=== PATIENT | male | born 1960 | race Caucasian/White ===

== ENCOUNTER 2020-05-02 13:20 | Emergency (ER) | payer OTHER ==
--- NOTE | 2020-05-02 16:44 | ER ---
Nurse's Notes [facility] Name: Marcelo Richards Age: 59 yrs Sex: Male : 1960 Arrival Date: 05/02/2020 Time: 13:23 Bed 25 Private MD: Diagnosis: Hematuria, unspecified Presentation: 05/02 13:31 Chief complaint: Patient states: Blood in urine with clots for 2 days. No fever. Had ll1 same problem in March that resolved on its own. No fever or pain. Coronavirus screen: Client denies travel out of the [place] in the last 14 days. At this time, the client does not indicate any symptoms associated with coronavirus-19. Ebola Screen: Patient denies travel to an Ebola-affected area in the 21 days before illness onset. Initial Sepsis Screen: Does the patient meet any 2 criteria? No. Patient's initial sepsis screen is negative. Does the patient have a suspected source of infection? Yes: Dysuria/Frequency/Urgency/UTI Other: bloody urine. Risk Assessment: Do you want to hurt yourself or someone else? Patient reports no desire to harm self or others. 13:31 Method Of Arrival: Ambulatory 1 13:31 Acuity: PATRIZIA 3 ll1 13:36 Chief complaint:. Onset of symptoms was May 01, 2020. ll1 Historical: - Allergies: 13:38 No Known Allergies; ll1 - PMHx: 13:38 None; ll1 - PSHx: 13:38 None; ll1 - Immunization history:: Flu vaccine is not up to date. - Social history:: Smoking status: Patient denies any tobacco usage or history of. Vital Signs: 13:36 BP 177 / 91; Pulse 98; Resp 17; Temp 98.0; Pulse Ox 100% ; Weight 90.72 kg; Height 5 ll1 ft. 11 in. (180.34 cm); Pain 0/10; 13:36 Body Mass Index 27.89 (90.72 kg, 180.34 cm) ll1 ED Course: 13:23 Patient arrived in ED. mr 13:31 Arm band placed on. ll1 13:32 Triage completed. ll1 15:30 Urine collected: clean catch specimen, clear, debi blood. jp3 15:30 Patient maintains SpO2 saturation greater than 95% on room air. jp3 16:25 Amanda Warner, RN is Primary Nurse. ec1 16:25 Telly Gonsales PA is PHCP. joe 16:25 Ryan Noel MD is Attending Physician. [facility] 16:26 Bed in low position. Call light in reach. Side rails up X 1. Warm blanket given. Verbal jp3 reassurance given. Pulse ox on. NIBP on. 16:43 Cory Mcgregor MD is Referral Physician. [facility] Administered Medications: No medications were administered Outcome: 16:43 [address]charge ordered by . [facility] 16:46 Patient left the ED. ll1 Signatures: Telly Gonsales PA PA [facility] Sabi Pulliam Jacob jp3 Mynor Borrego RN RN ll1 Amanda Warner, TONIE RN ec1 Corrections: (The following items were deleted from the chart) 13:38 13:31 Chief complaint: Patient states: Blood in urine with clots for days. No fever. ll1ll1
--- NOTE | 2020-05-02 16:44 | EDPHYS ---
Physician Documentation [facility] Name: Marcelo Richards Age: 59 yrs Sex: Male : 1960 Arrival Date: 05/02/2020 Time: 13:23 Bed 25 Private MD: ED Physician Ryan Noel HPI: 05/02 14:49 This 59 yrs old Male presents to ER via Ambulatory with complaints of Blood jmm in urine,Blood clot. 14:49 The patient presents with hematuria. Onset: The symptoms/episode began/occurred jmm gradually, 2 day(s) ago. Modifying factors: The symptoms are alleviated by nothing, the symptoms are aggravated by nothing. Associated signs and symptoms: Pertinent negatives: abdominal pain, fever. This is a 59 year old male that presents to the ED with complaints of blood clots in his urine. Patient denies pain, fever. Similar episode 1 month ago. Patient unable to see a urologist until Thursday. . Historical: - Allergies: 13:38 No Known Allergies; ll1 - PMHx: 13:38 None; ll1 - PSHx: 13:38 None; ll1 - Immunization history:: Flu vaccine is not up to date. - Social history:: Smoking status: Patient denies any tobacco usage or history of. ROS: 14:49 Constitutional: Negative for fever, chills, and weight loss, Cardiovascular: Negative jmm for chest pain, palpitations, and edema, Respiratory: Negative for shortness of breath, cough, wheezing, and pleuritic chest pain, Abdomen/GI: Negative for abdominal pain, nausea, vomiting, diarrhea, and constipation. 14:49 : Positive for hematuria. 14:49 All other systems are negative. Exam: 14:49 Constitutional: This is a well developed, well nourished patient who is awake, alert, jmm and in no acute distress. Head/Face: atraumatic. Eyes: EOMI, no conjunctival erythema appreciated ENT: Moist Mucus Membranes Neck: Trachea midline, Supple Chest/axilla: Normal chest wall appearance and motion. Cardiovascular: Regular rate and rhythm. No edema appreciated Respiratory: Normal respirations, no respiratory distress appreciated Abdomen/GI: Non distended, soft Back: Normal ROM Skin: General appearance color normal MS/ Extremity: Moves all extremities, no obvious deformities appreciated, no edema noted to the lower extremities Neuro: Awake and alert, normal gait Psych: Behavior is normal, Mood is normal, Patient is cooperative and pleasant Vital Signs: 13:36 BP 177 / 91; Pulse 98; Resp 17; Temp 98.0; Pulse Ox 100% ; Weight 90.72 kg; Height 5 ll1 ft. 11 in. (180.34 cm); Pain 0/10; 13:36 Body Mass Index 27.89 (90.72 kg, 180.34 cm) ll1 MDM: 16:25 Patient medically screened. [facility] 16:41 Data reviewed: vital signs, nurses notes. Counseling: I had a detailed discussion with ashlee the patient and/or guardian regarding: the historical points, exam findings, and any diagnostic results supporting the discharge/admit diagnosis, the need for outpatient follow up, to return to the emergency department if symptoms worsen or persist or if there are any questions or concerns that arise at home. Medical screen evaluation completed. [facility]. ED course: I discussed options with the patient. UA does not appear to show signs of infection. I advised the patient to drink plenty of fluids and follow up with urology for cystoscopy. Patient advised to return to the ED if he develops weakness, fever, pain, inability to urinate. . 05/02 14:48 Order name: Urine --Ancillary (enter results); Complete Time: 16:26 bd 05/02 16:27 Order name: Urine Dipstick-Ancillary (obtain specimen); Complete Time: 16:27 [facility] Administered Medications: No medications were administered Disposition: 17:35 Co-signature as Attending Physician, Ryan Noel MD. ma2 Disposition: 05/02/20 16:43 Discharged to Home as Medical Screen. Impression: Hematuria, unspecified. - Condition is Stable. - Discharge Instructions: Hematuria, Adult. - Medication Reconciliation Form, Thank You Letter, Antibiotic Education, Prescription Opioid Use form. - Follow up: Cory Mcgregor MD; When: As needed; Reason: Recheck today's complaints, Continuance of care, Re-evaluation by your physician. Signatures: Dispatcher [employer] EDMS Telly Gonsales PA PA jmm Alzahri, Mohammad, MD MD ma2 Mynor Borrego RN RN ll1 Corrections: (The following items were deleted from the chart) 16:46 16:43 05/02/2020 16:43 Discharged to Home as Medical Screen. Impression: Hematuria, ll1 unspecified. Condition is Stable. Forms are Medication Reconciliation Form, Thank You Letter, Antibiotic Education, Prescription Opioid Use. Follow up: Cory Mcgregor; When: As needed; Reason: Recheck today's complaints, Continuance of care, Re-evaluation by your physician. ashlee
[2020-05-02 16:50] VITALS: BP 177/91; TEMP 98; O2SAT 100
== END 2020-05-02 16:46 | disposition home or self-care (01) ==
LOC: ER 13:20
DX: R31.9 Hematuria, unspecified (principal)
CPT/HCPCS: 81025; 99284

== ENCOUNTER 2023-09-20 10:42 | Emergency (ER) | payer OTHER ==
--- NOTE | 2023-09-20 11:41 | RAD REPORT ---
EXAM DESCRIPTION: CT - Abdomen Pelvis Wo Contrast - 09/20/2023 11:14 am CLINICAL HISTORY: Abdominal pain /flank pain COMPARISON: None TECHNIQUE: Computed axial tomography of the abdomen and pelvis was obtained. IV and oral contrast we re not requested. All CT scans are performed using dose optimization technique as appropriate and may include automated exposure control or mA/KV adjustment according to patient size. FINDINGS: The evaluation of solid organs, vessels and bowel is limited secondary to the lack of con trast administration. 9.5 centimeter complex cyst dome of the liver contains a septation. The spleen, pancreas and adrenals grossly normal The appendix is normal. There is no evidence of diverticulitis. No hydronephrosis. A genitourinary calculus is not seen. Sub centimeter low-density mass left kidney nonspecific but probably a cyst. 4 centimeter area of increased density posterior bladder. Mild diffuse bladder wall thickening Prostate gland is markedly enlarged. Small to moderate umbilical hernia Moderate amount of stool within the colon IMPRESSION: 3 centimeter area of increased density within the bladder probably blood. Direct visuali zation recommended for further evaluation 9.5 centimeter complex cyst liver probably benign. Follow-up ultrasound in 3 months recommended to as sess stability
[2023-09-20 12:17] LABS: Absolute Lymphocytes (CBC) 0.9 K/uL (0.7-4.9); Absolute Monocytes 0.4 K/uL (0.1-1.3); Absolute Neutrophil 3.4 K/uL (1.8-8.0); Basophils % 0.6 % (0-1.3); Eosinophils % 0.9 % (0-4.4); Hematocrit 47.6 % (39.6-49.0); Hemoglobin 16.2 g/dL (13.6-17.9); Lymphocytes % 19.1 % (15.3-44.8); MCH 32.2 pg (27.0-35.0); MCHC 34.1 g/dL (32.0-36.0); MCV 94.3 fL (80-100); Monocytes % 7.7 % (3.3-12.3); Neutrophils % 71.7 % (41.7-73.7); Platelets 155 thou/uL (152-406); RBC Red Blood Cell Count 5.04 M/uL (4.33-5.43); Red Cell Distribution Width 13.2 % (12.1-15.2)
[2023-09-20 12:31] LABS: Albumin 3.6 g/dL (3.4-5.0); Albumin/Globulin Ratio 1.1 (1.1-1.8); Anion Gap 6.1 mEq/L (5.0-15.0); Bilirubin Total 0.7 mg/dL (0.2-1.0); Globulin 3.3 g/dL (2.3-3.5); Potassium 4.1 mEq/L (3.5-5.1); Protein, Total 6.9 g/dL (6.4-8.2)
[2023-09-20] MEDS ORDERED: KETOROLAC 30 MG/ML INJ ONE (13:03)
[2023-09-20 13:14] LABS: Sqamous Epithelial None Seen /HPF (None Seen); Urine Bacteria <20 /HPF (<20); Urine Crystals Unidentified Moderate /HPF (None Seen); Urine Culture Reflex Order REFLEXED; Urine Micro Reflex YN NO BILL MICROSCOPIC; Urine RBC >50 /HPF (None Seen); Urine WBC >50 /HPF (<5); Urine WBC Clump Occasional /HPF (None Seen); Urine Yeast (Budding) Trace /HPF (None Seen)
--- NOTE | 2023-09-20 14:09 | ER ---
Nurse's Notes [facility] Name: Marcelo Richards Age: 63 yrs Sex: Male : 1960 Arrival Date: 09/20/2023 Time: 10:42 Bed 17 Private MD: Diagnosis: Gross hematuria Presentation: 09/19 10:53 Chief complaint: Patient states: Bright red blood in urine and L low back pain that ph started today. Coronavirus screen: Vaccine status: Patient reports being unvaccinated. Ebola Screen: No symptoms or risks identified at this time. Initial Sepsis Screen: Does the patient meet any 2 criteria? No. Patient's initial sepsis screen is negative. Does the patient have a suspected source of infection? No. Patient's initial sepsis screen is negative. Risk Assessment: Do you want to hurt yourself or someone else? Patient reports no desire to harm self or others. Onset of symptoms was September 20, 2023. 10:53 Method Of Arrival: Ambulatory 10:53 Acuity: PATRIZIA 3 ph Historical: - Allergies: 10:54 No Known Allergies; ph - PMHx: 10:54 Prostate issues; ph - Immunization history:: Adult Immunizations unknown. - Infectious Disease History:: Denies. - Social history:: Smoking status: Patient denies any tobacco usage or history of. Screenin:21 [facility] ED Fall Risk Assessment (Adult) History of falling in the last 3 months, le1 including since admission No falls in past 3 months (0 pts) Confusion or Disorientation No (0 pts) Intoxicated or Sedated No (0 pts) Impaired Gait No (0 pts) Mobility Assist Device Used No (0 pt) Altered Elimination No (0 pt) Score/Fall Risk Level 0 - 2 = Low Risk Oriented to surroundings, Maintained a safe environment, Educated pt \T\ family on fall prevention, incl call for assistance when getting out of bed, Assessed \T\ reinforced patient's understanding of fall precautions, Hourly rounding (assess needs \T\ fall precautionary measures) done. Abuse screen: Denies threats or abuse. Nutritional screening: No deficits noted. Tuberculosis screening: No symptoms or risk factors identified. Assessment: 13:20 Reassessment: Patient appears in no apparent distress at this time. General: Appears in le1 no apparent distress. comfortable, Behavior is calm, cooperative. Pain: Denies pain. Neuro: No deficits noted. Cardiovascular: No deficits noted. Respiratory: No deficits noted. GI: No deficits noted. : Urine is blood tinged. Vital Signs: 10:53 BP 157 / 88; Pulse 84; Resp 18; Temp 97.7; Pulse Ox 98% on R/A; Weight 86.18 kg; Height ph 5 ft. 11 in. ; 14:16 BP 153 / 79; Pulse 66; Resp 16; Temp 98.3; Pulse Ox 98% ; le1 10:53 Body Mass Index 26.50 (86.18 kg, 180.34 cm) ph ED Course: 10:46 Patient arrived in ED. im 10:46 David Christensen MD is Attending Physician. ec2 10:53 Triage completed. ph 10:54 Arm band placed on Patient placed in an exam room, on a stretcher. ph 11:15 CT Abd/Pelvis - Without Contrast In Process Unspecified. EDMS 11:52 Keyon López, TONIE is Primary Nurse. le1 13:00 Initial lab(s) drawn, by ED staff, sent to lab. Urine collected: clean catch specimen, le1 blood tinged. 13:00 Inserted saline lock: 20 gauge in right antecubital area, using aseptic technique. le1 13:21 Patient has correct armband on for positive identification. Bed in low position. Call le1 light in reach. Side rails up X2. Provided Education on: Use call light for assistance. 14:09 Cory Mcgregor MD is Referral Physician. ec2 14:18 No provider procedures requiring assistance completed. IV discontinued, intact, le1 bleeding controlled, No redness/swelling at site. Pressure dressing applied. Administered Medications: 11:55 Not Given (Patient Refused): TORadol - [id number] mg IVP once le1 11:55 Not Given (Patient Refused): ondansetron 4 mg IVP once; over 2 minutes le1 13:04 Drug: Ketorolac IVP 15 mg IVP once Route: IVP; Site: right antecubital; le1 13:18 Follow up: Response: No adverse reaction; Pain is decreased le1 Medication: 13:21 VIS not applicable for this client. le1 Outcome: 14:09 Discharge ordered by . ec2 14:18 Discharged to home ambulatory, le1 14:18 Condition: improved 15:24 Discharge instructions given to patient, Instructed on discharge instructions, follow le1 up and referral plans. Demonstrated understanding of instructions, follow-up care, 15:24 Patient left the ED. le1 Signatures: Dispatcher [employer] Jenna Rainey, RN RN Janessa Truong Edwin, MD MD ec2 Keyon López RN RN le1
--- NOTE | 2023-09-20 14:09 | EDPHYS ---
Physician Documentation [facility] Name: Marcelo Richards Age: 63 yrs Sex: Male : 1960 Arrival Date: 09/20/2023 Time: 10:42 Bed 17 Private MD: ED Physician David Christensen HPI: 09/19 10:58 This 63 yrs old Male presents to ER via Ambulatory with complaints of Urinary ec2 Problem - Blood. 10:58 Patient arrives today for evaluation of left flank pain. Reports that he has been ec2 having some left-sided flank pain ongoing for the past couple days, also reports he is having blood in the urine. No history of kidney stones, not on blood thinners.. Historical: - Allergies: 10:54 No Known Allergies; ph - PMHx: 10:54 Prostate issues; ph - Immunization history:: Adult Immunizations unknown. - Infectious Disease History:: Denies. - Social history:: Smoking status: Patient denies any tobacco usage or history of. ROS: 10:58 Constitutional: as per hpi ec2 Exam: 10:58 Constitutional: GEN: NAD Head: atraumatic Eyes: EOMI Ears: External ears are ec2 normal. CV: regular rate LUNGS: no respiratory distress ABD: non-distended, soft, nontender, no guarding, minimal left CVA TTP. SKIN: no evidence of rashes MSK: no evidence of trauma NEURO: moves all extremities equally Vital Signs: 10:53 BP 157 / 88; Pulse 84; Resp 18; Temp 97.7; Pulse Ox 98% on R/A; Weight 86.18 kg; Height ph 5 ft. 11 in. ; 14:16 BP 153 / 79; Pulse 66; Resp 16; Temp 98.3; Pulse Ox 98% ; le1 10:53 Body Mass Index 26.50 (86.18 kg, 180.34 cm) ph MDM: 10:58 Patient medically screened. ec2 10:58 Data reviewed: vital signs. ED course: Patient arrives today for evaluation of left leg ec2 pain. Examination markable for abdominal findings as above. Obtain lab work, urine studies, CT imaging. Differential diagnose include ureteral stones, UTI, pyelonephritis. . 13:32 ED course: Metabolic profile shows appropriate electrolytes and renal function. Urine ec2 shows RBCs, WBCs. CBC is reassuring. CT abdomen pelvis shows 3 cm increase density lesion in the bladder, also shows complex liver cyst. . 14:07 ED course: Patient states that he has since passed a large clot in his urine. Patient ec2 is able to urinate, has no obstruction. I discussed urology follow-up and recommendation to have cystoscopy. Patient expressed understanding. Strict return precautions if he is unable to urinate. Will discharge to home with urology follow-up, return precautions given.. 09/19 10:58 Order name: CBC with Diff; Complete Time: 13:31 ec2 09/19 10:58 Order name: CMP; Complete Time: 13:31 ec2 09/19 13:01 Order name: Urine Microscopic Only; Complete Time: 13:31 EDKY 09/19 13:20 Order name: Urine Culture EDKY 09/19 10:58 Order name: CT Abd/Pelvis - Without Contrast; Complete Time: 13:31 ec2 09/19 10:58 Order name: IV Saline Lock; Complete Time: 13:01 ec2 09/19 10:58 Order name: Labs collected and sent; Complete Time: 13:01 ec2 Administered Medications: 11:55 Not Given (Patient Refused): TORadol - [id number] mg IVP once le1 11:55 Not Given (Patient Refused): ondansetron 4 mg IVP once; over 2 minutes le1 13:04 Drug: Ketorolac IVP 15 mg IVP once Route: IVP; Site: right antecubital; le1 13:18 Follow up: Response: No adverse reaction; Pain is decreased le1 Disposition Summary: 09/20/23 14:09 Discharge Ordered Notes: Location: Home ec2 Condition: Stable ec2 Diagnosis - Gross hematuria ec2 Followup: ec2 - With: Cory Mcgregor MD - When: - Reason: Recheck today's complaints Discharge Instructions: - Discharge Summary Sheet ec2 - Hematuria, Adult ec2 Forms: - Medication Reconciliation Form ec2 - Antibiotic Education ec2 - Prescription Opioid Use ec2 - Patient Portal Instructions ec2 - Leadership Thank You Letter ec2 Signatures: Dispatcher [employer] Jenna Rainey RN RN David Astudillo MD MD ec2 Keyon López RN RN le1 Corrections: (The following items were deleted from the chart) 10:59 10:59 CBC+H.LAB.BRZ ordered. EDMS EDMS 10:59 10:59 COMPREHENSIVE METABOLIC PANEL+C.LAB.BRZ ordered. EDMS EDMS 10:59 10:59 Abdomen Pelvis Wo Con+CT.RAD.BRZ ordered. EDMS EDMS 13:01 10:59 Urinalysis+U.LAB.BRZ ordered. EDMS EDMS
[2023-09-20 16:30] VITALS: BP 153/79; TEMP 98.3; O2SAT 98
== END 2023-09-20 15:24 | disposition home or self-care (01) ==
LOC: ER 10:42
DX: R31.0 Gross hematuria (principal); R10.9 Unspecified abdominal pain
CPT/HCPCS: 36415; 74176; 80053; 81015; 85025; 87086; 87088; 96374; 99284

== ENCOUNTER 2024-04-04 02:51 | Emergency (ER) | payer OTHER ==
[2024-04-04] MEDS ORDERED: ACETAMINOPHEN 500 MG TAB ONE (03:07)
[2024-04-04] MEDS ORDERED: PROMETHAZINE 25 MG TABLET ONE (03:25)
[2024-04-04] MEDS ORDERED: BENZONATATE 100 MG CAP PO ONE (03:26)
[2024-04-04] MEDS ORDERED: IBUPROFEN 400 MG TAB ONE (03:26)
[2024-04-04] MEDS ORDERED: GUAIFENESIN/DM 5 ML UCUP ONE (03:27)
[2024-04-04 03:37] LABS: SARS-CoV-2 Antigen CONTROL BLUE LINE VIS/BG OK; SARS-CoV-2 Antigen Rapid Res Negative (Negative)
[2024-04-04] MEDS ORDERED: AZITHROMYCIN 250 MG TAB ONE (03:54)
--- NOTE | 2024-04-04 05:23 | ER ---
Nurse's Notes [facility] Name: Marcelo Richards Age: 63 yrs Sex: Male : 1960 Arrival Date: 04/04/2024 Time: 02:51 Bed 5 Private MD: Diagnosis: Fever, unspecified;Acute pharyngitis, unspecified;Acute upper respiratory infection, unspecified Presentation: 04/04 03:01 Chief complaint: Patient states: fever, cough, congestion and sinus issues for the last cp4 3 days. Coronavirus screen: Client denies travel out of the [place] in the last 14 days. At this time, the client does not indicate any symptoms associated with coronavirus-19. Ebola Screen: Patient negative for fever greater than or equal to 101.5 degrees Fahrenheit, and additional compatible Ebola Virus Disease symptoms Patient denies exposure to infectious person. Patient denies travel to an Ebola-affected area in the 21 days before illness onset. No symptoms or risks identified at this time. Initial Sepsis Screen: Does the patient meet any 2 criteria? HR > 90 bpm. No. Patient's initial sepsis screen is negative. Does the patient have a suspected source of infection? No. Patient's initial sepsis screen is negative. Risk Assessment: Do you want to hurt yourself or someone else? Patient reports no desire to harm self or others. Onset of symptoms was April 01, 2024. 03:01 Method Of Arrival: Ambulatory cp4 03:01 Acuity: PATRIZIA 4 cp4 Triage Assessment: 03:04 General: Appears in no apparent distress. comfortable, Behavior is calm, cooperative, cp4 appropriate for age. Pain: Denies pain. Historical: - Allergies: 03:04 No Known Allergies; cp4 - PMHx: 03:04 prostate issues; cp4 - Immunization history:: Adult Immunizations up to date. - Infectious Disease History:: Denies. - Social history:: Smoking status: Patient denies any tobacco usage or history of. - Family history:: not pertinent. Screenin:08 [facility] ED Fall Risk Assessment (Adult) History of falling in the last 3 months, vc1 including since admission No falls in past 3 months (0 pts) Confusion or Disorientation No (0 pts) Intoxicated or Sedated No (0 pts) Impaired Gait No (0 pts) Mobility Assist Device Used No (0 pt) Altered Elimination No (0 pt) Score/Fall Risk Level 0 - 2 = Low Risk Oriented to surroundings, Maintained a safe environment, Educated pt \T\ family on fall prevention, incl call for assistance when getting out of bed. Abuse screen: Denies threats or abuse. Nutritional screening: No deficits noted. Tuberculosis screening: No symptoms or risk factors identified. Assessment: 03:15 General: Appears in no apparent distress. uncomfortable, Behavior is calm, cooperative, dd2 appropriate for age. Pain: Complains of pain in GENERALIZED BODY ACHES Pain does not radiate. Pain currently is 3 out of 10 on a pain scale. Neuro: Walker Agitation-Sedation Scale (RASS): 0 - Alert and Calm Level of Consciousness is awake, alert, obeys commands, Oriented to person, place, time, situation, Appropriate for age. Cardiovascular: No deficits noted. Patient's skin is warm and dry. Respiratory: Reports cough that is non-productive, persistent Airway is patent Respiratory effort is even, unlabored, Respiratory pattern is regular, symmetrical, Breath sounds are clear bilaterally. GI: No deficits noted. No signs and/or symptoms were reported involving the gastrointestinal system. Abdomen is non-distended. : No deficits noted. No signs and/or symptoms were reported regarding the genitourinary system. EENT: Nares with drainage noted Reports nasal congestion since X3 DAYS. Derm: No deficits noted. No signs and/or symptoms reported regarding the dermatologic system. Musculoskeletal: Reports pain in GENERALIZED BODY ACHES. 04:10 Reassessment: Patient and/or family updated on plan of care and expected duration. Pain ha1 level reassessed. Patient is alert, oriented x 3, equal unlabored respirations, skin warm/dry/pink. Vital Signs: 03:01 BP 165 / 74; Pulse 110; Resp 18; Temp 101; Pulse Ox 95% ; Weight 83.91 kg; Height 5 ft. vc1 11 in. ; Pain 0/10; 03:30 BP 152 / 84; Pulse 103; Resp 16; Pulse Ox 95% on R/A; dd2 04:10 BP 143 / 71; Pulse 98; Resp 18 S; Pulse Ox 95% on R/A; ha1 05:52 BP 145 / 75; Pulse 86; Resp 16; Temp 99.2(O); Pulse Ox 96% on R/A; dd2 03:01 Body Mass Index 25.80 (83.91 kg, 180.34 cm) vc1 03:01 Pain Scale: Adult vc1 Mitzi Coma Score: 03:15 Eye Response: spontaneous(4). Motor Response: obeys commands(6). Verbal Response: dd2 oriented(5). Total: 15. 05:51 Eye Response: spontaneous(4). Motor Response: obeys commands(6). Verbal Response: sp4 oriented(5). Total: 15. ED Course: 02:54 Patient arrived in ED. gm2 03:01 Kip Alvarez MD is Attending Physician. vc1 03:04 Triage completed. cp4 03:04 Arm band placed on right wrist. Patient placed in waiting room. cp4 03:09 Patient has correct armband on for positive identification. Bed in low position. Call vc1 light in reach. Pulse ox on. NIBP on. 03:15 Door closed. Noise minimized. Pillow given. PO fluids given. Verbal reassurance given. dd2 03:15 No provider procedures requiring assistance completed. Flu and/or RSV swab sent to lab. dd2 Patient did not have IV access during this emergency room visit. Patient maintains SpO2 saturation greater than 95% on room air. 03:22 TONYA BEGUM, RN is Primary Nurse. dd2 03:43 CXR XRAY In Process Unspecified. EDMS 05:52 Provided Education on: D/C EDUCATIONS. dd2 Administered Medications: 03:08 Drug: Acetaminophen PO 1000 mg PO once Route: PO; dd2 03:39 Follow up: Response: No adverse reaction dd2 03:38 Drug: Ibuprofen PO 800 mg PO once Route: PO; dd2 04:11 Follow up: Response: No adverse reaction dd2 03:38 Drug: Dextromethorphan-Guaifenesin PO Liquid 10 mg-100 mg/5 mL 20 ml PO once Route: PO; dd2 04:11 Follow up: Response: No adverse reaction dd2 03:38 Drug: Tessalon Perle PO 200 mg PO once Route: PO; dd2 04:11 Follow up: Response: No adverse reaction dd2 03:38 Drug: Promethazine PO 25 mg PO once Route: PO; dd2 04:12 Follow up: Response: No adverse reaction dd2 03:58 Drug: AZITHromycin PO 500 mg PO once Route: PO; dd2 04:28 Follow up: Response: No adverse reaction dd2 Medication: 03:15 VIS not applicable for this client. dd2 Outcome: 05:22 Discharge ordered by . sp4 05:52 Discharged to home ambulatory, dd2 05:52 Condition: improved 05:52 Discharge instructions given to patient, Instructed on discharge instructions, follow up and referral plans. medication usage, Demonstrated understanding of instructions, follow-up care, medications, Prescriptions given X 4, 05:54 Patient left the ED. dd2 Signatures: Dispatcher [employer] EDMS Latia Wolf RN RN vc1 Sue Padron RN RN ha1 Kip Alvarez MD MD sp4 Penelope Victoria cp4 Dotty Coffey 2 TONYA BEGUM RN RN dd2 Corrections: (The following items were deleted from the chart) 03:09 03:01 BP 165 / 74; Pulse 110bpm; Resp 18bpm; Pulse Ox 95%; Temp 99.2F; 83.91 kg; Height vc1 5 ft. 11 in.; BMI: 25.8; Pain 0/10, Adult; cp4
--- NOTE | 2024-04-04 05:23 | EDPHYS ---
Physician Documentation [facility] Name: Marcelo Richards Age: 63 yrs Sex: Male : 1960 Arrival Date: 04/04/2024 Time: 02:51 Bed 5 Private MD: ED Physician Kip Alvarez HPI: 04/04 03:16 This 63 yrs old Male presents to ER via Ambulatory with complaints of Fever, sp4 Cough, Nasal Congestion, Flu Symptoms. 05:51 This is a 63-year-old male presents with acute onset of 2 days of fever cough sp4 congestion, feeling unwell overall, febrile on presentation.. Historical: - Allergies: 03:04 No Known Allergies; cp4 - PMHx: 03:04 prostate issues; cp4 - Immunization history:: Adult Immunizations up to date. - Infectious Disease History:: Denies. - Social history:: Smoking status: Patient denies any tobacco usage or history of. - Family history:: not pertinent. ROS: 05:51 Constitutional: Positive for fever, positive chills, positive for congestion, positive sp4 for cough, positive for nasal drainage 05:51 All other systems are negative, Exam: 05:51 Constitutional: This is a well developed, well nourished patient who is awake, alert, sp4 and in no acute distress. Head/Face: Normocephalic, atraumatic. Eyes: Pupils equal round and reactive to light, extra-ocular motions intact. Lids and lashes normal. Conjunctiva and sclera are not injected. Cornea within normal limits. Periorbital areas with no swelling, redness, or edema. ENT: Nares patent. Positive for nasal congestion, positive for nasal discharge, positive for bilateral ear canal wax occlusions, positive for pharyngeal erythema without exudates pharyngeal irritation, otherwise unremarkable. Neck: Trachea midline, no thyromegaly or masses palpated, and no cervical lymphadenopathy. Supple, full range of motion without nuchal rigidity, or vertebral point tenderness. Chest/axilla: Normal chest wall appearance and motion. Nontender with no deformity. No lesions are appreciated. Cardiovascular: Regular rate and rhythm with a normal S1 and S2. No gallops, murmurs, or rubs. Normal PMI, no JVD. No pulse deficits. Respiratory: Lungs have equal breath sounds bilaterally, clear to auscultation and percussion. No rales, rhonchi or wheezes noted. No increased work of breathing, no retractions or nasal flaring. Abdomen/GI: Soft, with normal bowel sounds. No distension or tympany. No guarding or rebound. No evidence of tenderness throughout. Back: No spinal tenderness. No costovertebral tenderness. Skin: Warm, dry with normal turgor. Normal color with no rashes, no lesions, and no evidence of cellulitis. MS/ Extremity: Pulses equal, no cyanosis. Neurovascular intact. Full, normal range of motion. Neuro: Awake and alert, GCS 15, oriented to person, place, time, and situation. Cranial nerves II-XII grossly intact. Motor strength 5/5 in all extremities. Sensory grossly intact. Psych: Awake, alert, with orientation to person, place and time. Behavior, mood, and affect are within normal limits Vital Signs: 03:01 BP 165 / 74; Pulse 110; Resp 18; Temp 101; Pulse Ox 95% ; Weight 83.91 kg; Height 5 ft. vc1 11 in. ; Pain 0/10; 03:30 BP 152 / 84; Pulse 103; Resp 16; Pulse Ox 95% on R/A; dd2 04:10 BP 143 / 71; Pulse 98; Resp 18 S; Pulse Ox 95% on R/A; ha1 05:52 BP 145 / 75; Pulse 86; Resp 16; Temp 99.2(O); Pulse Ox 96% on R/A; dd2 03:01 Body Mass Index 25.80 (83.91 kg, 180.34 cm) vc1 03:01 Pain Scale: Adult vc1 Mitzi Coma Score: 03:15 Eye Response: spontaneous(4). Motor Response: obeys commands(6). Verbal Response: dd2 oriented(5). Total: 15. 05:51 Eye Response: spontaneous(4). Motor Response: obeys commands(6). Verbal Response: sp4 oriented(5). Total: 15. MDM: 03:15 Medical Screening Exam initiated sp4 04/04 03:02 Order name: SARS RAPID; Complete Time: 03:40 vc1 04/04 03:02 Order name: Flu; Complete Time: 03:40 vc1 04/04 03:02 Order name: CXR XRAY vc1 Administered Medications: 03:08 Drug: Acetaminophen PO 1000 mg PO once Route: PO; dd2 03:39 Follow up: Response: No adverse reaction dd2 03:38 Drug: Ibuprofen PO 800 mg PO once Route: PO; dd2 04:11 Follow up: Response: No adverse reaction dd2 03:38 Drug: Dextromethorphan-Guaifenesin PO Liquid 10 mg-100 mg/5 mL 20 ml PO once Route: PO; dd2 04:11 Follow up: Response: No adverse reaction dd2 03:38 Drug: Tessalon Perle PO 200 mg PO once Route: PO; dd2 04:11 Follow up: Response: No adverse reaction dd2 03:38 Drug: Promethazine PO 25 mg PO once Route: PO; dd2 04:12 Follow up: Response: No adverse reaction dd2 03:58 Drug: AZITHromycin PO 500 mg PO once Route: PO; dd2 04:28 Follow up: Response: No adverse reaction dd2 Disposition Summary: 04/04/24 05:22 Discharge Ordered Notes: Location: Home sp4 Problem: new sp4 Symptoms: have improved sp4 Condition: Stable sp4 Diagnosis - Fever, unspecified sp4 - Acute pharyngitis, unspecified sp4 - Acute upper respiratory infection, unspecified sp4 Followup: sp4 - With: Private Physician - When: 7 - 10 days - Reason: Recheck today's complaints Discharge Instructions: - Discharge Summary Sheet sp4 - Pharyngitis sp4 Forms: - Patient Portal Instructions sp4 Prescriptions: - dextromethorphan-guaifenesin 20-400 mg Oral tablet - take 1 tablet ORAL route every 6 hours PRN cough; 60 tablet; Refills: 0, sp4 Product Selection Permitted - Ibuprofen 800 mg Oral tablet - take 1 tablet ORAL route every 6 hours As needed take with food; 30 tablet; sp4 Refills: 0, Product Selection Permitted - Zithromax Z-Yordan 250 mg Oral Tablet - take 1 tablet ORAL route as directed for 5 days Day 1 - take two (2) tablets sp4 one time. Day 2, 3, 4 , 5 take one (1) tablet once daily.; 6 tablet; Refills: 0, Product Selection Permitted - benzonatate 200 mg Oral capsule - take 1 capsule ORAL route every 6 hours as needed; 60 capsule; Refills: 0, sp4 Product Selection Permitted - promethazine 25 mg Oral tablet - take 1 tablet ORAL route every 6 hours As needed PRN nausea; 30 tablet; sp4 Refills: 0, Product Selection Permitted Signatures: Dispatcher [employer] EDKip Hahn MD MD sp4 [place] Victoria DIANA RN RN dd2 Corrections: (The following items were deleted from the chart) 03:03 03:03 SARS-COV-2 Antigen Rapid+I.LAB.BRZ ordered. EDMS EDMS 03:03 03:03 Influenza Screen (A \T\ B)+BA.LAB.BRZ ordered. EDMS EDMS 03:03 03:03 Chest Single View+RAD.RAD.BRZ ordered. EDMS EDMS
--- NOTE | 2024-04-04 05:57 | RAD REPORT ---
CLINICAL HISTORY: Cough. COMPARISON: None. TECHNIQUE: XR CHEST 1 VIEW 04/04/2024 3:02 AM SUBSTATION MAINTENANCE TECHNICIAN FINDINGS: Cardiac silhouette is normal in size. Lungs are clear without consolidation, atelectasis, mass or abad ma. There is no pleural effusion. There is no pneumothorax. There are no acute osseous findings. IMPRESSION: Clear lungs. Electronically signed by: Glen Andrade MD 04/04/2024 04:00 AM SUBSTATION MAINTENANCE TECHNICIAN RP Due to temporary technical issues with the [email or web address] reporting system, reports are being zenia d by the in-house radiologist without review as a courtesy to ensure prompt reporting the interpreting radiologist is fully responsible for the content of the report. Transcribed Date/Time: 04/04/2024 5:56 AM
[2024-04-04 06:18] VITALS: BP 145/75; TEMP 99.2; O2SAT 96
== END 2024-04-04 05:54 | disposition home or self-care (01) ==
LOC: ER 02:51
DX: J06.9 Acute upper respiratory infection, unspecified (principal); J02.9 Acute pharyngitis, unspecified; Z11.52 Encounter for screening for COVID-19
CPT/HCPCS: 36415; 87804 ×2; 71045; 99284; 87811; Q0169